=== PATIENT | male | born 1950 | race Two or more races ===

== ENCOUNTER 2022-09-20 07:05 | Day surgery (SDC) | payer OTHER, MEDICAID ==
[2022-09-20] VITALS (9 sets, daily range): BP systolic 113–131; BP diastolic 60–83
[~2022-09-20] VITALS: Ht 172.7 cm; Wt 81.6 kg
[2022-09-20] MEDS ORDERED: ANGIOMAX 250 MG VIAL IV ONE (08:38)
[2022-09-20] MEDS ORDERED: fentaNYL CITRATE 100 MCG/2 ML VL ONE (08:38)
[2022-09-20] MEDS ORDERED: SODIUM CHL 0.9% 0 ML ONE (08:38)
[2022-09-20] MEDS ORDERED: MIDAZOLAM HCL 2MG/2ML 2ml VIAL (1mg/ml) ONE (08:38)
[2022-09-20] MEDS ORDERED: IODIXANOL 320MG/ML 100ML BTL IV ONE ×2 (08:42→09:01)
[2022-09-20] MEDS ORDERED: LIDOCAINE 2%HCL (LOCAL ANESTH.) INJ 10ml MDV ONE (08:42)
[2022-09-20] MEDS ORDERED: VERAPAMIL 2.5MG/ML INJ 2ML VIAL IV ONE (08:44)
[2022-09-20] MEDS ORDERED: HEPARIN SODIUM (PORCINE) 5000 UNITS/ML 1ML VIAL ONE (08:44)
[2022-09-20] MEDS ORDERED: ATOR10TA PO (09:28)
[2022-09-20] MEDS ORDERED: OME20T PO (09:28)
== END 2022-09-20 11:35 | disposition home or self-care (01) ==
LOC: CATH 07:05
PROVIDERS: ATTEND Internal Medicine Cardiovascular Disease
DX: I25.10 Atherosclerotic heart disease of native coronary artery without angina pectoris (principal); E78.5 Hyperlipidemia, unspecified; I10 Essential (primary) hypertension; Z98.890 Other specified postprocedural states; Z79.899 Other long term (current) drug therapy; Z20.822 Contact with and (suspected) exposure to COVID-19
CPT/HCPCS: 93458; C1887; C1894; J1644; J2001; J2250; J3010; Q9967; U0003; 99152

== ENCOUNTER 2025-08-06 05:42 | Emergency (ER) | payer OTHER, MEDICAID ==
[~2025-08-06] VITALS: Ht 177.8 cm; Wt 91.0 kg
[~2025-08-06 05:42] MED LIST: ATOR10TA PO; OME20T PO
--- NOTE | 2025-08-06 06:48 | ED.PDOC ---
History of Present Illness HPI Comments 75 y/o Citizen Of [place]-speaking M, with a Hx GERD, HLD, HTN, and hemorrhoids, is BIBA from private residence for c/c of rectal pain and bleeding for 4x chambers. Endorsed associated clot production. He denies of having any abdominal pain, nausea, vomiting, diarrhea, constipation, strain with defecation, or further associated symptoms. Chief Complaint: Rectal Pain Time Seen by MD: 06:20 Reviewed Notes: Nurses Notes, Oxidized Finish Plater Notes, Medications, Allergies Allergies: Coded Allergies: NO KNOWN ALLERGIES (Unverified , 09/17/22) Home Meds Reported Medications Omeprazole (Omeprazole) 20 Mg Cap, 20 MG PO DAILY 09/20/22 Atorvastatin Calcium (Lipitor) 10 Mg Tab, 1 TAB PO QPM 09/20/22 Information Source: Patient, Emergency Med Personnel Mode of Arrival: Ambulatory Past Medical History PAST MEDICAL HISTORY: GERD, High Lipids, HTN Past Medical History (Other): hemorrhoids All Other Systems: Reviewed and Negative (Comprehensive review of systems are negative unless stated in HPI) Physical Exam General Appearance: Moderate Distress HEENT: Normal ENT Inspection, Pharynx Normal, TMs Normal Neck: Full Range of Motion, Non-Tender, Normal, Normal Inspection Respiratory: Chest Non-Tender, Lungs Clear, No Accessory Muscle Use, No Respiratory Distress, Normal Breath Sounds Cardiovascular: No Edema, No JVD, No Murmur, No Gallop, Normal Peripheral Pulses, Regular Rate/Rhythm Breast Exam: Deferred Gastrointestinal: No Organomegaly, Non Tender, No Pulsatile Mass, Normal Bowel Sounds, Soft Genitalia: Deferred Pelvic: Deferred Rectal: Deferred Extremities: No calf tenderness, Normal capillary refill, Normal inspection, Normal range of motion, Non-tender, No pedal edema Musculoskeletal : Apperance: Normal Neurologic: Alert, oil expeller II-XII nml as Tested, No Motor Deficits, Normal Affect, Normal Mood, No Sensory Deficits Cerebellar Function: NOT DONE Reflexes: NOT DONE Skin: Dry, Normal Color, Warm Peripheral Pulses: 3+ Radial (R), 3+ Radial (L) Lymphatic: No Adenopathy Was a procedure done? Was a procedure done?: No Differential Dx Considerations may include: Hemorrhoids, anal fissure, lower GI bleed, anemia, among others X-Ray, Labs, Meds, VS Vital Signs Date Time Temp Pulse Resp B/P (MAP) Pulse Ox O2 Delivery O2 Flow Rate FiO2 08/06/25 07:57 97.9 60 18 145/69 (94) 98 97.9 08/06/25 07:57 60 18 98 Room Air 08/06/25 05:42 97.4 97 20 155/80 97 97.4 Lab Test 08/06/25 06:55 Range/Units White Blood Count 5.5 4.4-10.8 10^3/uL Red Blood Count 4.62 4.5-5.90 10^6/uL Hemoglobin 14.0 13.5-17.5 g/dL Hematocrit 41.0 41.0-53.0 % Mean Corpuscular Volume 88.7 80.0-100.0 fL Mean Corpuscular Hemoglobin 30.2 28.0-32.0 pg Mean Corpuscular Hemoglobin Concent 34.1 32.0-36.0 g/dL Red Cell Distribution Width 15.3 H 11.8-14.3 % Platelet Count 263 140-450 10^3/uL Mean Platelet Volume 7.1 6.9-10.8 fL Neutrophils (%) (Auto) 54.0 37.0-80.0 % Lymphocytes (%) (Auto) 34.7 10.0-50.0 % Monocytes (%) (Auto) 8.3 0.0-12.0 % Eosinophils (%) (Auto) 2.2 0.0-7.0 % Basophils (%) (Auto) 0.8 0.0-2.0 % Neutrophils # (Auto) 3.0 1.6-8.6 10 ^3/uL Lymphocytes # (Auto) 1.9 0.4-5.4 10 ^3/uL Monocytes # (Auto) 0.5 0-1.3 10 ^3/uL Eosinophils # (Auto) 0.1 0-0.8 10 ^3/uL Basophils # (Auto) 0 0-0.2 10 ^3/uL Nucleated Red Blood Cells 0.1 % Sodium Level 144 136-145 mmol/L Potassium Level 4.3 3.5-5.1 mmol/L Chloride Level 106 98-107 mmol/L Carbon Dioxide Level 31 20-31 mmol/L Anion Gap 7 5-15 Blood Urea Nitrogen 12 9-23 mg/dL Creatinine 1.05 0.700-1.30 mg/dL Glomerular Filtration Rate Calc 74 >90 mL/min BUN/Creatinine Ratio 11.4 10.0-20.0 Serum Glucose 98 74-106 mg/dL Calcium Level 9.0 8.7-10.4 mg/dL Current Medications Medications (Trade) Dose Ordered Sig/Shawn Route Start Time Stop Time Status Last Admin Acetaminophen/ Hydrocodone Bitart ([place] 10/325MG Tab) 1 tab ONCE ONCE PO 08/06/25 08:00 08/06/25 08:01 DC 08/06/25 08:21 [place] [id number] Ph: [phone] DIAGNOSTIC IMAGING Diagnostic Imaging Report : [id number] Signed PATIENT: VERO RIOS ACCT: [id number] UNIT: [id number] : 1950 LOC: ER ROOM / BED: / AGE / SEX: 75 / M ADM STATUS: REG ER SERVICE [id number] ORDERING PHYSICIAN: GUERDA NESBITT MD PROCEDURE(s): ABPL - CT AB PEL WO CON-NO ORAL OR IV REASON: rectalbleed ORDER NUMBER(s): [id number], ACCESSION NUMBER(s): [id number] Indication: rectalbleed Technique: CT axial images of the abdomen and pelvis are obtained without contrast. Coronal and sagittal reformats were obtained. Radiation Dose Information: CTDI volume is 14.85 mGy. Dose-length product is 724 mGy*cm Comparison: None FINDINGS: There is limited interpretation of the abdomen and pelvis without administration of intravenous contrast. Lung bases demonstrate no pleural effusion. Adrenal glands, spleen, pancreas, liver unremarkable in shape. No CT evidence for cholelithiasis. No hydronephrosis /nephrolithiasis. Stomach is nondistended. Small bowel loops are normal in caliber. Colonic diverticular disease. Moderate volume stool throughout the colon. Normal appendix. Abdominal aortic atherosclerotic disease. Bladder is partially distended. No free pelvic fluid. No inguinal lymphadenopathy. Interbody disc spacers at L5-S1. Posterior decompression at L5. Moderate thoracolumbar degenerative disc disease. IMPRESSION: Limited evaluation without contrast. Colonic diverticular disease. Atherosclerotic disease. Other findings as described. ATED BY: MANISH CHOW MD DICTATED DATE/TIME: 08/06/25738 SIGNED BY: MANISH CHOW MD SIGNED DATE/TIME: 08/06/25738 CC: Patient alert. Complaining of rectal bleeding. Vitals stable. Answering questions. Comfortable. Blood pressure slightly elevated. Possibly will need colonoscopy. CT scan of the abdomen does not show any acute process. Possibly hemorrhoid. Was given prescription of Anusol. Explained to the patient. Continue to monitor. Was told to follow up with his primary care physician. Was told to come back if there is any problem. Time of 1ST Reevaluation: 06:50 Reevaluation 1ST: Unchanged Patient Education/Counseling: Diagnosis, Treatment Family Education/Counseling: No Family Present SEPSIS Sepsis Screen Date sepsis recognized/suspect: Aug 06, 2025 Time Sepsis recognized/suspect: 541 Recent Procedure: No On Antibiotic Therapy: No Respiratory Rate >20: No Heart Rate >90: No Temp<36 C (96.8 F) or >38.3 C: No SBP <90 or MAP <65 mmHG: No New Acute Mental Status Change: No Is the patient on CPAP, BIPAP,: No Physician Orders Urinalysis (08/06/25 06:38) Ct Ab Pel Wo Con-No Oral Or Iv (08/06/25 06:38) Vital Signs Date Time Temp Pulse Resp B/P (MAP) Pulse Ox O2 Delivery O2 Flow Rate FiO2 08/06/25 07:57 97.9 60 18 145/69 (94) 98 97.9 08/06/25 07:57 60 18 98 Room Air 08/06/25 05:42 97.4 97 20 155/80 97 97.4 Laboratory Tests Test 08/06/25 06:55 White Blood Count 5.5 10^3/uL (4.4-10.8) Medications Medications Dose Ordered Sig/Shawn Route Start Time Stop Time Status Last Admin Dose Admin Acetaminophen/ Hydrocodone Bitart 1 tab ONCE ONCE PO 08/06/25 08:00 08/06/25 08:01 DC 08/06/25 08:21 Departure 1 Departure Time of Disposition: 07:05 Impression: Primary Impression: Hemorrhoids Disposition: 01 HOME / SELF CARE / HOMELESS Condition: Good e-Prescriptions Hydrocortisone Base (Anusol-Hc) 2.5 % Cre 1 APPLIC TOP BID for 10 Days, #5 GRAMS 1 Refill Prov: DELICIA,GUERDA MD 08/06/25 Discharged With: Self Critical Care Note Critical Care Time?: Yes (90 min-critical care time only) Critical care comment: Rectal bleeding Stability Stability form required: No Heart Score Heart Score: Heart Score Response (Comments) Value History N/A 0 EKG N/A 0 Age N/A 0 Risk Factors N/A 0 Troponin N/A 0 Total 0 I personally scribed for GUERDA NESBITT MD ([email or web address]) on 08/06/25 at 06:48. Electronically submitted by Jason Reyes ([email or web address]). I personally scribed for GUERDA NESBITT MD ([email or web address]) on 08/06/25 at 07:44. Electronically submitted by Jason Reyes ([email or web address]). GUERDA NESBITT MD Aug 06, 2025 06:48
[2025-08-06 07:31] LABS: Chloride 106 mmol/L (98-107); Potassium 4.3 mmol/L (3.5-5.1); Sodium 144 mmol/L (136-145)
[2025-08-06 07:32] LABS: Anion Gap 7 (5-15); Carbon Dioxide 31 mmol/L (20-31)
[2025-08-06 07:33] LABS: Calcium 9.0 mg/dL (8.7-10.4)
[2025-08-06 07:37] LABS: Hematocrit 41.0 % (41.0-53.0); Hemoglobin 14.0 g/dL (13.5-17.5); Mean Corpuscular Hemoglobin 30.2 pg (28.0-32.0); Mean Corpuscular Volume 88.7 fL (80.0-100.0); Nucleated Red Blood Cells % 0.1 %
--- NOTE | 2025-08-06 07:37 | DVH ---
Indication: rectalbleed Technique: CT axial images of the abdomen and pelvis are obtained without contrast. Coronal and sagit rafi reformats were obtained. Radiation Dose Information: CTDI volume is 14.85 mGy. Dose-length product is 724 mGy*cm Comparison: None FINDINGS: There is limited interpretation of the abdomen and pelvis without administration of intravenous contr ast. Lung bases demonstrate no pleural effusion. Adrenal glands, spleen, pancreas, liver unremarkable in shape. No CT evidence for cholelithiasis. No hydronephrosis /nephrolithiasis. Stomach is nondistended. Small bowel loops are normal in caliber. Colonic diverticular disease. Moderate volume stool throughout the colon. Normal appendix. Abdominal aortic atherosclerotic disease. Bladder is partially distended. No free pelvic fluid. No in guinal lymphadenopathy. Interbody disc spacers at L5-S1. Posterior decompression at L5. Moderate thoracolumbar degenerative disc disease. IMPRESSION: Limited evaluation without contrast. Colonic diverticular disease. Atherosclerotic disease. Other findings as described.
[2025-08-06 07:38] LABS: BUN/Creatinine Ratio 11.4 (10.0-20.0); Blood Urea Nitrogen 12 mg/dL (9-23); Glucose 98 mg/dL (74-106)
[2025-08-06] MEDS: HYDROcodone-ACET 10/325MG TAB PO ONE (08:21)
[2025-08-06] MEDS ORDERED: HYDR2.5C39 TOP (10:32)
[2025-08-06 10:56] VITALS: BP 139/67; PULSE 63; RESP 18; TEMP 97.9; O2SAT 98
== END 2025-08-06 10:52 | disposition home or self-care (01) ==
LOC: EDBD 05:42 → ER 05:42
DX: K64.9 Unspecified hemorrhoids (principal); I10 Essential (primary) hypertension; E78.5 Hyperlipidemia, unspecified; K21.9 Gastro-esophageal reflux disease without esophagitis; Z79.899 Other long term (current) drug therapy; Z87.19 Personal history of other diseases of the digestive system
CPT/HCPCS: 36415; 74176; 80048; 85025